=== PATIENT | male | born 1995 | race Caucasian/White ===

== ENCOUNTER 2024-09-24 21:05 | Emergency (ER) | payer MEDICAID ==
[~2024-09-24] VITALS: Ht 180.3 cm; Wt 117.1 kg
[2024-09-24 21:53] VITALS: O2SAT 98
[2024-09-24] MEDS ORDERED: CEPH500T MT (23:18)
[2024-09-24] MEDS ORDERED: SULF1TAB48 MT (23:18)
[2024-09-24] MEDS ORDERED: IBUP-2029 MT (23:18)
[2024-09-24 23:22] VITALS: BP 122/80; PULSE 86; RESP 18; TEMP 36.89184; O2SAT 98
== END 2024-09-24 23:24 | disposition home or self-care (01) ==
LOC: ER 21:05
DX: L02.212 Cutaneous abscess of back [any part, except buttock and flank] (principal)
CPT/HCPCS: 99283

== ENCOUNTER 2024-09-28 16:39 | Emergency (ER) | payer MEDICAID ==
[~2024-09-28] VITALS: Ht 185.4 cm; Wt 113.4 kg
[~2024-09-28 16:39] MED LIST: CEPH500T MT; IBUP-2029 MT; SULF1TAB48 MT
[2024-09-28 16:52] VITALS: BP 120/67; PULSE 89; RESP 16; TEMP 98.9; O2SAT 98
== END 2024-09-28 22:30 | disposition home or self-care (01) ==
LOC: ER 16:39
DX: L02.212 Cutaneous abscess of back [any part, except buttock and flank] (principal); Z48.00 Encounter for change or removal of nonsurgical wound dressing; Z79.899 Other long term (current) drug therapy
CPT/HCPCS: 99281